=== PATIENT | male | born 1990 | race Caucasian/White ===

== ENCOUNTER 2017-02-12 22:55 | Emergency (ER) | payer OTHER ==
[2017-02-13 00:52] LABS: Basophils % (Auto) 0.2 % (0.0-1.8); Eosinophils % (Auto) 0.3 % (0.0-4.3); Hematocrit 43.9 % (35.5-45.6); Hemoglobin 15.3 gm/dl (11.8-15.2); Mean Corpuscular HGB Conc 35 % (32-34); Mean Corpuscular Hemoglobin 31 pg (28-32); Mean Corpuscular Volume 87 fl (84-94); Platelet Count 184 K/mm3 (140-440); Red Blood Count 5.03 M/mm3 (3.65-5.03); Red Cell Distribution Width 12.7 % (13.2-15.2); White Blood Count 5.3 K/mm3 (4.5-11.0)
[2017-02-13 01:02] LABS: Anion Gap 16 mmol/L; Blood Urea Nitrogen 12 mg/dL (9-20); Calcium 9.3 mg/dL (8.4-10.2); Carbon Dioxide 25 mmol/L (22-30); Chloride 103.8 mmol/L (98-107); Glucose 102 mg/dL (75-100); Sodium 141 mmol/L (137-145)
--- NOTE | 2017-02-13 01:12 | XRay Report ---
FINAL REPORT EXAM: XR ABD SERIES W CXR 1V HISTORY: SWALLOWED A RAZOR TECHNIQUE: Frontal view of the chest and supine and upright views of the abdomen. PRIORS: None. FINDINGS: There is no radiopaque foreign body in the chest, abdomen or pelvis. The chest x-ray demonstrates clear lungs and a normal cardiomediastinal silhouette. Abdominal radiographs show a normal bowel gas pattern. There is no evidence of ileus or obstruction. The bones and soft tissues are unremarkable. IMPRESSION: No radiopaque foreign body. No evidence of acute cardiopulmonary or abdominal disease.
[2017-02-13 04:00] LABS: Urine Drugs of Abuse Note Disclamer
[2017-02-13 04:08] LABS: Bilirubin,Urine NEG (Negative); Blood,Urine NEG (Negative); Ketones,Urine NEG (Negative); Leukocyte Esterase,Urine NEG (Negative); Nitrite,Urine NEG (Negative); Protein,Urine <15 mg/dL mg/dL (Negative); Urobilinogen,Urine < 2.0 mg/dL (<2.0)
[2017-02-13 04:28] LABS: RBC,Urine < 1.0 /HPF (0.0-6.0); WBC,Urine < 1.0 /HPF (0.0-6.0)
[2017-02-13 08:41] VITALS: BP 113/48
--- NOTE | 2017-02-13 09:09 | Emergency Department Report ---
- General Chief complaint: Skin/Abscess/Foreign Body Stated complaint: SWOLLED RAZOR Time Seen by Provider: 02/13/17 08:27 Source: patient Mode of arrival: Wheelchair Limitations: No Limitations - History of Present Illness Initial comments: 27-year-old male presents from the [place] [facility] custody with foreign body ingestion and self-inflicted laceration. Patient used a razor to cause a laceration to his left forearm. Patient states he broke a razor blade into 4 pieces and swallowed them at approximately 7:45 PM. His goal was to inflict pain on himself. He denies suicidal ideation. He states he has inflicted pain on himself in the past. Last tetanus 2012. Patient denies any physical symptoms at this time. Steri-Strips and dressing placed on left forearm laceration prior to arrival. - Related Data Allergies Allergy/AdvReac Type Severity Reaction Status Date / Time bupropion HCl Allergy Unknown Verified 02/12/17 23:45 [From Wellbutrin] Penicillins Allergy Unknown Verified 02/12/17 23:45 Abscess Boil HPI - HPI Chief Complaint: Skin/Abscess/Foreign Body Stated Complaint: SWOLLED RAZOR Time Seen by Provider: 02/13/17 08:27 Allergies/Adverse Reactions: Allergies Allergy/AdvReac Type Severity Reaction Status Date / Time bupropion HCl Allergy Unknown Verified 02/12/17 23:45 [From Wellbutrin] Penicillins Allergy Unknown Verified 02/12/17 23:45 ED Review of Systems ROS: Stated complaint: SWOLLED RAZOR Other details as noted in HPI Comment: All other systems reviewed and negative Other: Constitutional: No fevers chills Eyes: No eye pain visual changes ENT: No ear pain or throat pain Neck: Denies pain Respiratory: Denies cough wheezing shortness of breath Cardiovascular: Denies chest pain, palpitations, syncope GI: Denies abdominal pain, nausea, vomiting, diarrhea : Denies dysuria Musculoskeletal: Denies back pain Skin: as per hi Neurologic: Denies headache, numbness, weakness Psychiatric: Denies suicidal ideation ED Past Medical Hx - Social History Smoking Status: Never Smoker Substance Use Type: None ED Physical Exam - General Limitations: No Limitations - Other Other exam information: General: No limitations, patient is alert in no acute distress Head exam: Atraumatic, normocephalic Eyes exam: Normal appearance ENT: Moist mucous membrane, normal oropharynx Neck exam: Normal inspection, full range of motion, no meningismus nontender Respiratory exam: Clear to auscultation bilateral, no wheezes, rales, crackles Cardiovascular: Normal rate and rhythm, normal heart sounds Abdomen: Soft, nondistended, and nontender, with normal bowel sounds, no rebound, or guarding Extremity: Full range of motion normal inspection no deformity Back: Normal Inspection, full range of motion, no tenderness Neurologic: Alert, oriented x3, cranial nerves intact, no motor or sensory deficit Psychiatric: normal affect, normal mood Skin: Left forearm 4 cm laceration with Steri-Strips ED Course Vital Signs 02/12/17 02/13/17 02/13/17 23:31 05:49 05:52 Temperature 98.8 F Pulse Rate 63 Respiratory 18 17 Rate Blood Pressure 137/83 O2 Sat by Pulse 96 98 99 Oximetry 02/13/17 02/13/17 02/13/17 06:00 06:09 06:30 Temperature 98.5 F Pulse Rate 66 Respiratory 18 Rate Blood Pressure 110/69 110/69 110/69 O2 Sat by Pulse 98 97 Oximetry 02/13/17 08:40 Temperature 97.8 F Pulse Rate 78 Respiratory 18 Rate Blood Pressure 113/48 O2 Sat by Pulse 98 Oximetry - Reevaluation(s) Reevaluation #1: 02/13/17 09:19 Pt stable asymptomatic - Consultations Consultation #1: 02/13/17 09:18 case d/w Dr Carolyn briggs with GI, agrees razor should be radioopaque and show up on xray. Since no foreign body seen patient may be discharged. ED Medical Decision Making - Lab Data Result diagrams: 02/13/17 00:11 02/13/17 00:11 Lab Results 02/13/17 02/13/17 02/13/17 Range/Units 00:11 00:11 00:11 WBC 5.3 (4.5-11.0) K/mm3 RBC 5.03 (3.65-5.03) M/mm3 Hgb 15.3 H (11.8-15.2) gm/dl Hct 43.9 (35.5-45.6) % MCV 87 (84-94) fl MCH 31 (28-32) pg MCHC 35 H (32-34) % RDW 12.7 L (13.2-15.2) % Plt Count 184 (140-440) K/mm3 Lymph % (Auto) 33.2 (13.4-35.0) % [place] % (Auto) 8.0 H (0.0-7.3) % Eos % (Auto) 0.3 (0.0-4.3) % Baso % (Auto) 0.2 (0.0-1.8) % Lymph # 1.8 (1.2-5.4) K/mm3 [place] # 0.4 (0.0-0.8) K/mm3 Eos # 0.0 (0.0-0.4) K/mm3 Baso # 0.0 (0.0-0.1) K/mm3 Seg Neutrophils % 58.3 (40.0-70.0) % Seg Neutrophils # 3.1 (1.8-7.7) K/mm3 Sodium 141 (137-145) mmol/L Potassium 4.0 (3.6-5.0) mmol/L Chloride 103.8 (98-107) mmol/L Carbon Dioxide 25 (22-30) mmol/L Anion Gap 16 mmol/L BUN 12 (9-20) mg/dL Creatinine 0.8 (0.8-1.5) mg/dL Estimated GFR > 60 ml/min BUN/Creatinine Ratio 15.00 % Glucose 102 H (75-100) mg/dL Calcium 9.3 (8.4-10.2) mg/dL Urine Color (Yellow) Urine Turbidity (Clear) Urine pH (5.0-7.0) Ur Specific [place] (1.003-1.030) Urine Protein (Negative) mg/dL Urine Glucose (UA) (Negative) mg/dL Urine Ketones (Negative) mg/dL Urine Blood (Negative) Urine Nitrite (Negative) Urine Bilirubin (Negative) Urine Urobilinogen (<2.0) mg/dL Ur Leukocyte Esterase (Negative) Urine WBC (Auto) (0.0-6.0) /HPF Urine RBC (Auto) (0.0-6.0) /HPF Urine Opiates Screen Urine Methadone Screen Ur Barbiturates Screen Ur Phencyclidine Scrn Ur Amphetamines Screen U Benzodiazepines Scrn Urine Cocaine Screen U Marijuana (THC) Screen Drugs of Abuse Note Plasma/Serum Alcohol < 0.01 (0-0.07) gm% 02/13/17 02/13/17 Range/Units 03:53 03:53 WBC (4.5-11.0) K/mm3 RBC (3.65-5.03) M/mm3 Hgb (11.8-15.2) gm/dl Hct (35.5-45.6) % MCV (84-94) fl MCH (28-32) pg MCHC (32-34) % RDW (13.2-15.2) % Plt Count (140-440) K/mm3 Lymph % (Auto) (13.4-35.0) % [place] % (Auto) (0.0-7.3) % Eos % (Auto) (0.0-4.3) % Baso % (Auto) (0.0-1.8) % Lymph # (1.2-5.4) K/mm3 [place] # (0.0-0.8) K/mm3 Eos # (0.0-0.4) K/mm3 Baso # (0.0-0.1) K/mm3 Seg Neutrophils % (40.0-70.0) % Seg Neutrophils # (1.8-7.7) K/mm3 Sodium (137-145) mmol/L Potassium (3.6-5.0) mmol/L Chloride (98-107) mmol/L Carbon Dioxide (22-30) mmol/L Anion Gap mmol/L BUN (9-20) mg/dL Creatinine (0.8-1.5) mg/dL Estimated GFR ml/min BUN/Creatinine Ratio % Glucose (75-100) mg/dL Calcium (8.4-10.2) mg/dL Urine Color Yellow (Yellow) Urine Turbidity Clear (Clear) Urine pH 7.0 (5.0-7.0) Ur Specific [place] 1.013 (1.003-1.030) Urine Protein <15 mg/dl (Negative) mg/dL Urine Glucose (UA) Neg (Negative) mg/dL Urine Ketones Neg (Negative) mg/dL Urine Blood Neg (Negative) Urine Nitrite Neg (Negative) Urine Bilirubin Neg (Negative) Urine Urobilinogen < 2.0 (<2.0) mg/dL Ur Leukocyte Esterase Neg (Negative) Urine WBC (Auto) < 1.0 (0.0-6.0) /HPF Urine RBC (Auto) < 1.0 (0.0-6.0) /HPF Urine Opiates Screen Presumptive negative Urine Methadone Screen Presumptive negative Ur Barbiturates Screen Presumptive negative Ur Phencyclidine Scrn Presumptive negative Ur Amphetamines Screen Presumptive negative U Benzodiazepines Scrn Presumptive negative Urine Cocaine Screen Presumptive negative U Marijuana (THC) Screen Presumptive negative Drugs of Abuse Note Disclamer Plasma/Serum Alcohol (0-0.07) gm% - Radiology Data Radiology results: report reviewed (Abd series xray: no radiopaque foreign body. No evidence of acute cardiopulmonary or abdominal disease) - Medical Decision Making Plan to discharge patient back into police custody since no signs of ingested radiopaque foreign body/Razor at this time. Case discussed with GI. Will instruct to return if GI symptoms or bleeding develop - Differential Diagnosis foreign body ingestion, laceration, suicidal ideation Critical Care Time: No Critical care attestation.: If time is entered above; I have spent that time in minutes in the direct care of this critically ill patient, excluding procedure time. ED Disposition Clinical Impression: Hx of foreign body ingestion, Laceration of forearm, left, Self-harming behavior Disposition: DC-01 TO HOME OR SELFCARE Is pt being admited?: No Does the pt Need Aspirin: No Condition: Stable Instructions: Foreign Body Ingestion (ED), Laceration (ED) Additional Instructions: At this time there was not any foreign body identified on your x-ray. If you develop worsening pain, bloody stool, or vomiting. Return to the hospital symptoms worsen. Referrals: PRIMARY CARE, [Primary Care Provider] - 3-5 Days Time of Disposition: 09:36
== END 2017-02-13 10:33 | disposition home or self-care (01) ==
LOC: ED 22:55 → EEVIPCON 22:55 → ED 02-13 10:33
DX: S51.812A Laceration without foreign body of left forearm, initial encounter (principal); Z88.0 Allergy status to penicillin; Z88.8 Allergy status to other drugs, medicaments and biological substances; X99.8XXA Assault by other sharp object, initial encounter; Y93.89 Activity, other specified; Y92.89 Other specified places as the place of occurrence of the external cause; Y99.8 Other external cause status
CPT/HCPCS: 36415; 74022; 80048; 80307; 81001; 85025; 99284; G0480; 80320